=== PATIENT | male | born 1975 | race Caucasian/White ===

== ENCOUNTER 2016-09-25 03:44 | Emergency (ER) | payer OTHER ==
[~2016-09-25] VITALS: Ht 170.2 cm; Wt 65.8 kg
[2016-09-25 04:07] VITALS: BP 128/69
== END 2016-09-25 04:47 | disposition home or self-care (01) ==
LOC: ER 03:44
DX: R68.89 Other general symptoms and signs (principal); E07.9 Disorder of thyroid, unspecified
CPT/HCPCS: 99282; A4606; Z7610

== ENCOUNTER 2024-02-02 02:16 | Emergency (ER) | payer BC, OTHER ==
[~2024-02-02] VITALS: Ht 170.2 cm; Wt 68.0 kg
[2024-02-02] MEDS ORDERED: MECLIZINE HCL 25 MG TABLET ONE (04:01)
[2024-02-02] MEDS ORDERED: ONDANSETRON HCL/PF 4 MG/2 ML VIAL ONE (04:01)
[2024-02-02 04:13] LABS: BASOPHILS % (AUTO) 0.2 % (0.0-2.0); EOSINOPHILS % (AUTO) 0.2 % (0.0-6.0); HEMATOCRIT 41 % (39-51); HEMOGLOBIN 14.5 g/dL (13.5-17.5); LYMPHOCYTES % (AUTO) 10.2 % (20.0-44.0); MEAN CORPUSCULAR HEMOGLOBIN 35 PG (26.0-33.0); MEAN CORPUSCULAR HGB CONC 35 g/dl (31.0-36.0); MEAN CORPUSCULAR VOLUME 100 fL (80-96); MONOCYTES # (AUTO) 0.5 K/uL (0.1-1.30); MONOCYTES % (AUTO) 5.1 % (2.0-12.0); NEUTROPHILS # (AUTO) 8.1 K/uL (1.8-8.9); NEUTROPHILS % (AUTO) 84.3 % (43.0-81.0); PLATELET COUNT (AUTO) 188 K/uL (150-450); RED BLOOD CELL COUNT(AUTO) 4.13 MIL/uL (4.5-6.0); WHITE BLOOD COUNT (AUTO) 9.6 K/uL (4.3-11.0)
[2024-02-02] MEDS: MECLIZINE HCL 12.5 MG TABLET PO ONE (04:13)
[2024-02-02] MEDS: ONDANSETRON HCL/PF 4 MG/2 ML VIAL IVP ONE (04:13)
[2024-02-02] MEDS: IV NS 0.9% 1,000 ML BAG IV ONE (04:13)
[2024-02-02 04:28] LABS: ALANINE AMINOTRANSFERASE 40 U/L (12-78); ALBUMIN 4.1 g/dL (3.4-5.0); ALKALINE PHOSPHATASE 87 U/L (46-116); ASPARTATE AMINOTRANSFERASE 21 U/L (15-37); BILIRUBIN,DIRECT 0.3 mg/dL (0.0-0.2); CARBON DIOXIDE 25 mmol/L (21-32); CHLORIDE 106 mmol/L (98-107); CREATININE 1.1 mg/dL (0.6-1.3); GLUCOSE 97 mg/dL (74-106); LIPASE 18 U/L (16-77); POTASSIUM 4.2 mmol/L (3.5-5.1); SODIUM SERUM 142 mmol/L (136-145); TOTAL PROTEIN, SERUM 7.2 g/dL (6.4-8.2); UREA NITROGEN, BLOOD 32 mg/dL (7-18)
[2024-02-02] MEDS ORDERED: ONDA4TAB5 PO ×2 (05:38→19:12)
[2024-02-02] MEDS ORDERED: MECL-159 PO ×2 (05:38→19:12)
[2024-02-02 06:15] VITALS: BP 111/70; TEMP 98; O2SAT 99
== END 2024-02-02 06:16 | disposition home or self-care (01) ==
LOC: ER 02:25
DX: R42 Dizziness and giddiness (principal); R11.2 Nausea with vomiting, unspecified; F19.10 Other psychoactive substance abuse, uncomplicated; Z86.39 Personal history of other endocrine, nutritional and metabolic disease
CPT/HCPCS: 99285; 96374; 71045; 96361; 93005; 85025; 80048; 83690; 80076; 36415; 84484; 82962; J8597; J2405; J7030